=== PATIENT | female | born 1980 | race Caucasian/White ===

== ENCOUNTER 2019-06-11 16:58 | Emergency (ER) | payer OTHER, SELFPAY ==
[2019-06-11 18:40] VITALS: PULSE 73; RESP 16; TEMP 36.4; O2SAT 99; BMI 21.2
--- NOTE | 2019-06-11 22:10 | PC.NURSE ---
NEEDLE PUNCTURE TO LEFT THUMB
[2019-06-11 22:11] VITALS: BP 103/70; PULSE 65; PULSE 67; RESP 16; O2SAT 100
[2019-06-11] MEDS: tetanus-diphtheria tox (adult) 0.5 mL SDV IM (22:42)
[2019-06-11 23:01] VITALS: BP 123/65; PULSE 70; RESP 18; TEMP 36.6; O2SAT 99
[2019-06-11 23:33] LABS: Hepatitis A Antibody IgM. Non-Reactive (Nonreactive); Hepatitis B Core IgM Non-Reactive (Nonreactive); Hepatitis C Virus Antibody Non-Reactive (Nonreactive)
[2019-06-11 23:51] LABS: HIV 1 & 2 Antibody Non-Reactive (Non-Reactiv); HIV 1 & 2 Antigen Non-Reactive (Non-Reactiv)
[2019-06-13 17:02] LABS: Hepatitis B Surface Antigen. Non-Reactive (Nonreactive)
--- NOTE | 2019-07-14 07:14 | W.ED.TRAUMA ---
HPI - Trauma General: Chief Complaint: Trauma Stated Complaint: exposed to HepC at work Time Seen by Provider: 06/11/19 21:57 History of Present Illness: HPI narrative: finger stick Onset (ago): hour(s) Associated symptoms: Denies abdominal pain, chest pain, chills, fever(s), headache(s), nausea or vomiting Review of Systems Narrative: Finger stick with dirty needle Const: Denies: fever, chills or body aches Eyes: Denies: change in vision or blurry vision ENMT: Denies: throat pain or nasal congestion Card: Denies: chest pain or shortness of breath on exertion Resp: Denies: shortness of breath, productive cough or non-productive cough GI: Denies: abdominal pain, nausea or vomiting Musc: Denies: extremity pain Skin/Breast: Denies: rash Neuro: Denies: headache Psych: Denies: anxiety or depression Jung/Lymph: Denies: easy bruising PFSH ED PFSH: Statuses (acute, chronic, etc) shown below reflect problem list status as previously entered and may not be historically accurate Social History Smoking and tobacco status: current every day smoker Physical Exam Narrative: EXAM NARRATIVE: He was see where the finger was stuck at no evidence of erythema Const: COMMON NORMALS: no apparent distress, average body habitus and oriented x3 HENMT: COMMON NORMALS: normocephalic HEAD & SCALP: normal to inspection and normocephalic FACE & SINUS: normal facial exam Eye: COMMON NORMALS: conjunctivae normal GENERAL EYE: normal appearance of both eyes CONJUNCTIVA: Yes conjunctivae normal Neck/C-Spine: COMMON NORMALS: no JVD Chest: COMMONS NORMALS: inspection of chest normal Resp: COMMON NORMALS: normal respiratory effort and clear to auscultation bilaterally AUSCULTATION: clear to auscultation bilaterally Cardio: COMMON NORMALS: no JVD, regular rate and regular rhythm RATE: regular rate RHYTHM: regular rhythm GI: COMMON NORMALS: normal to inspection, nondistended, normoactive bowel sounds Extremity: COMMON NORMALS: normal to inspection and full ROM Neuro: COMMON NORMALS: oriented x3 MDM - Trauma Lab Data: Labs: Lab Results 06/11/19 06/11/19 Range/Units 22:45 22:45 Hepatitis A IgM Ab Non-reactive (Nonreactive) Hep Bs Antigen Non-reactive (Nonreactive) Hep B Core IgM Ab Non-reactive (Nonreactive) Hepatitis C Antibo dy Non-reactive (Nonreactive) HIV 1&2 Ab & HIV 1 Ag Non-reactive (Non-Reactiv) HIV 1&2 Antibody Non-reactive (Non-Reactiv) Discharge Plan Discharge Patient Disposition: Home, Self-Care Clinical Impression: Hypodermic needlestick injury with contaminated needle Condition: Stable Prescriptions: New dolutegravir 50 mg tablet 50 mg PO DAILY Qty: 3 RF: 0 tenofovir disoproxil fumarate 300 mg tablet 300 mg PO DAILY Qty: 3 RF: 0 emtricitabine 200 mg capsule 200 mg PO DAILY Qty: 3 RF: 0 Discharge Orders: Discharge Order (Routine); Ordered 06/11/19 Ordered By: Jd Lopez Referrals: Senia Krueger FNP [Primary Care Provider] - Patient Instructions: Needle Stick Injuries (ED) Activity Restrictions/Additional Instructions: Follow-up with work comp as directed. You will need to have blood drawn in 1 month 3 months 6 months and 1 year for post needlestick exposure guideline. Keep area clean with soap and water. If signs of cellulitis develop return to the ER follow-up with your work comp assigned provider. Discharge Date/Time: 06/11/19 23:03 Coding Level of Care Code ED Specialty Trimmer for Jose Alvarado
== END 2019-06-11 23:03 | disposition home or self-care (01) ==
PROVIDERS: Emergency Provider Nurse Practitioner Family; Family Provider Nurse Practitioner; PCP Nurse Practitioner
DX: S61.239A Puncture wound without foreign body of unspecified finger without damage to nail, initial encounter (principal); W46.1XXA Contact with contaminated hypodermic needle, initial encounter; F17.210 Nicotine dependence, cigarettes, uncomplicated; Z23 Encounter for immunization
CPT/HCPCS: 36415; 80074; 90472; 90714; 99282

== ENCOUNTER → 2019-08-27 11:49 | Outpatient (BNVA) | payer OTHER, SELFPAY | PROVIDERS: Family Provider Nurse Practitioner; PCP Nurse Practitioner; Referring Provider Family Medicine; Visit Provider Family Medicine | DX: S69.90XA Unspecified injury of unspecified wrist, hand and finger(s), initial encounter (principal); W46.0XXA Contact with hypodermic needle, initial encounter; Z20.5 Contact with and (suspected) exposure to viral hepatitis | CPT/HCPCS: 80074 ==

== ENCOUNTER → 2024-01-10 15:27 | Outpatient (BNVA) | payer MEDICAID, SELFPAY | PROVIDERS: Family Provider Nurse Practitioner; PCP Nurse Practitioner; Visit Provider Nurse Practitioner | DX: Z13.6 Encounter for screening for cardiovascular disorders (principal); F17.210 Nicotine dependence, cigarettes, uncomplicated; R63.4 Abnormal weight loss; Z98.890 Other specified postprocedural states | CPT/HCPCS: 71046; 74018; 80053; 80061; 82607; 84443; 85025 ==

== ENCOUNTER 2024-02-12 11:20 | Outpatient (CLI) | payer MEDICAID, SELFPAY ==
--- NOTE | 2024-02-12 11:20 | MM_ITS ---
WS: [id number] BILATERAL 3D TOMOSYNTHESIS DIGITAL SCREENING MAMMOGRAPHY WITH CAD CLINICAL INFORMATION: Z12.31 - Encounter for screening mammogram for malignant ... HISTORY: Screening mammogram. History of LEFT nipple discharge. COMPARISON: None. TECHNIQUE: Bilateral CC and MLO views. FINDINGS: The breasts are composed of heterogeneous fibroglandular density tissue, which can limit the detectio n of small underlying mass lesions. Dense subareolar LEFT breast tissue with nodularity. Recommend fu rther evaluation with LEFT breast diagnostic mammography and ultrasound. RIGHT breast is unremarkable. MM/[place] [id number] IMPRESSION: DENSITY: The breasts are heterogeneously dense, which may obscure small masses. BI-RADS: 0 - Incomplete: Need additional imaging evaluation FOLLOW UP: Need Additional Imaging Recommend further evaluation with LEFT breast diagnostic mammography and ultras ound.
== END 2024-02-12 11:21 | disposition home or self-care (01) ==
PROVIDERS: PCP Nurse Practitioner; Visit Provider Nurse Practitioner
DX: Z12.31 Encounter for screening mammogram for malignant neoplasm of breast (principal); R92.333 Mammographic heterogeneous density, bilateral breasts; N63.42 Unspecified lump in left breast, subareolar
CPT/HCPCS: 77063; 77067

== ENCOUNTER 2024-03-27 08:34 | Outpatient (CLI) | payer MEDICAID, SELFPAY ==
--- NOTE | 2024-03-27 08:38 | MM_ITS ---
WS: [id number] LEFT 3D TOMOSYNTHESIS DIGITAL MAMMOGRAPHY WITH CAD CLINICAL INFORMATION: ABNORMAL MAMMOGRAM HISTORY: Additional views COMPARISON: 02/12/2024 TECHNIQUE: 3 views of the left breast were obtained. FINDINGS: Scattered fibroglandular densities of the left breast. Dense subareolar breast tissue is again seen on the spot compression views. Ultrasound of this area i s pending. ULTRASOUND BREAST LEFT TECHNIQUE: Ultrasound left breast focused area of concern. CLINICAL INFORMATION: ABNORMAL MAMMOGRAM FINDINGS: Ultrasound LEFT breast at the areola. A few dilated ducts deep to the areola compatible with incident al ductal ectasia. No suspicious lesions to target for biopsy. Recommend return to annual screening m ammography. MM/MM diag LT tomosynthesis [id number] IMPRESSION: DENSITY: There are scattered areas of fibroglandular density. BI-RADS: 2 - Benign. FOLLOW UP: 1 Year Follow-up Recommend return to annual screening mammography.
== END 2024-03-27 08:35 | disposition home or self-care (01) ==
LOC: RAD 08:34
PROVIDERS: PCP Nurse Practitioner; Visit Provider Nurse Practitioner
DX: R92.322 Mammographic fibroglandular density, left breast (principal)
CPT/HCPCS: 76642; 77061; G0279

== ENCOUNTER → 2024-11-12 11:01 | Outpatient (BNVA) | payer MEDICAID, SELFPAY | PROVIDERS: PCP Nurse Practitioner; Visit Provider Nurse Practitioner Women's Health | DX: N95.0 Postmenopausal bleeding (principal); Z12.4 Encounter for screening for malignant neoplasm of cervix | CPT/HCPCS: 82670; 83001; 83002; 83520; 84144; 84146; 84443; 87624 ==

== ENCOUNTER → 2024-11-17 08:01 | Outpatient (BNVA) | payer MEDICAID, SELFPAY | PROVIDERS: PCP Nurse Practitioner; Visit Provider Nurse Practitioner Women's Health | DX: N92.6 Irregular menstruation, unspecified (principal) | CPT/HCPCS: 76830 ==